=== PATIENT | male | born 1945 | race Caucasian/White ===

== ENCOUNTER 2018-08-13 13:24 | Emergency (ER) | payer OTHER, BC ==
[2018-08-13 13:37] VITALS: BP 160/90; PULSE 92; TEMP 98.4; BMI 27.8
[2018-08-13] MEDS ORDERED: VANCOMYCIN 1 GRAM (PRE-DOCKED) 1,000 MG/250 ML BAG IVPB ONE ×2 (14:47→14:53)
[2018-08-13] MEDS ORDERED: SODIUM CHLORIDE 0.9% 1000 ML INFUS.BAG IV ONE (14:47)
[2018-08-13] MEDS ORDERED: PIPERACILLIN/TAZOB 3.375 GM 3.375 GM in DEXTROSE 5%-WATER - 50 ML IVPB ONE (14:48)
[2018-08-13] MEDS ORDERED: PIPERACILLIN/TAZOB 3.375 GM 3.375 GM/50 ML BAG IVPB ONE (14:54)
--- NOTE | 2018-08-13 15:04 | PDOC ---
History of Present Illness - General Chief Complaint: Wound Stated Complaint: RASH Time Seen by Provider: 08/13/18 14:03 History Source: Patient Exam Limitations: No Limitations - History of Present Illness Initial Comments: 08/13/18 14:58 73 yo male DM here with c/o left testicular / groin pain. has noted a rash, left groin and was concerned he was getting an abscess. no f/c pain moderate. no dysuria. no mod factors. no h/o prior infections. . no n/f no abd pain. Past History - Past Medical History Allergies/Adverse Reactions: Allergies Allergy/AdvReac Type Severity Reaction Status Date / Time No Known Allergies Allergy Verified 08/13/18 13:34 Home Medications: Ambulatory Orders Insulin NPH Hum/Reg Insulin Hm [Humulin 70-30 Vial] 30 unit SQ BID 01/27/16 Amlodipine Besylate/Benazepril [Lotrel 10-20 mg Capsule] 1 cap PO DAILY Clindamycin [Cleocin -] 300 mg PO Q6H #28 capsule 08/13/18 COPD: No Diabetes: Yes - Suicide/Smoking/Psychosocial Hx Smoking History: Current every day smoker Number of Cigarettes Smoked Daily: 30 Information on smoking cessation initiated: No 'Breaking Loose' booklet given: 01/27/16 Hx Alcohol Use: Yes (SOCIAL) Drug/Substance Use Hx: No Substance Use Type: None Review of Systems - Review of Systems Constitutional: No: Chills, Diaphoresis, Fever HEENTM: No: Blurred Vision, Mouth Swelling Respiratory: No: Shortness of Breath, Wheezing Cardiac (ROS): No: Chest Pain : Yes: Testicular Pain Musculoskeletal: No: Back Pain Integumentary: Yes: Erythema, Rash Neurological: No: Headache, Numbness Psychiatric: No: Frequent Crying Endocrine: No: Excessive Sweating Hematologic/Lymphatic: No: Anemia, Blood Clots All Other Systems: Reviewed and Negative *Physical Exam - Vital Signs Last Vital Signs Temp Pulse Resp BP Pulse Ox 98.4 F 92 H 18 160/90 96 08/13/18 13:36 08/13/18 13:36 08/13/18 13:36 08/13/18 13:36 08/13/18 13:36 - Physical Exam Comments: 08/13/18 15:02 awake alert NAD lungs clear bilaterally heart rrr no mrg abd soft nt nd. left inguinal region with swelling indurated area palp abscess. bilat scrotal erythema, moist skin, no crepitus. tracking erythema to posterior testicule. multiple smal pustules across scrotom. expressable purulence from left inguinal region abscess. ED Treatment Course - LABORATORY CBC & Chemistry Diagram: 08/13/18 15:26 08/13/18 15:26 Medical Decision Making - Medical Decision Making 08/13/18 15:04 73 yo male h/o DM here with left inguinal abscess, scrotal cellulitis, folluculitis. concerns for early fourniers gangrene. plan r/o sepsis cbc lytes lact ivf, cultures lactic acid. iv abx. pt state he can not stay for admission . explained risk of severe infection including , needing orchiectomy and severe illness, given dose of vancomycin and zosyn. will cosult urology, and case management to help problem solve. 08/13/18 16:59 pt evaluated by case management unwilling to give further info regarding home obligations. will dc with rx for clindamycin 300 qid, told to follow up with urology, encouraged to return to ed for evaluation and admission . *DC/Admit/Observation/Transfer Diagnosis at time of Disposition: Scrotal abscess, Cellulitis - Discharge Dispostion Disposition: AGAINST MEDICAL ADVICE Condition at time of disposition: Guarded - Prescriptions Prescriptions: Clindamycin [Cleocin -] 300 mg PO Q6H #28 capsule - Referrals Referrals: Damien Zaragoza MD., MD [Staff Physician] - - Patient Instructions Printed Discharge Instructions: DI for Skin Abscess, DI for Sepsis -- Adult Additional Instructions: understand you are leaving against medical advice. you are at risk for serious infection at consequences such as losing your testicles, severe infection and even . you are encouraged to return for admission . you should take clindamycin 300 mg four times daily for one week. you should follow up with a urologist call dr. Zaragoza. you should soak in warm soapy water twice daily. - Post Discharge Activity
[2018-08-13 15:58] LABS: BASO % 0.7 % (0-2.0); EOS % 1.7 % (0-4.5); HEMATOCRIT 47.8 % (35.4-49); HEMOGLOBIN 16.1 GM/dL (11.7-16.9); MCHC 33.7 g/dl (32.0-35.9); MEAN CELL VOLUME 88.9 fl (80-96); MEAN PLT VOLUME 10.1 fl (7.5-11.1); MONO % 10.2 % (3.8-10.2); NEUT % 71.4 % (42.8-82.8); PLATELET COUNT 232 K/MM3 (134-434); RBC 5.38 M/mm3 (4.00-5.60); RDW 14.7 % (11.9-15.9); WHITE BLOOD COUNT 11.3 K/mm3 (4.0-10.0)
[2018-08-13 16:02] LABS: URINE APPEARANCE CLOUDY; URINE BILIRUBIN NEGATIVE (<2.0 mg/dL); URINE COLOR AMBER; URINE GLUCOSE (UA) 3+ (NEGATIVE); URINE KETONE NEGATIVE (NEGATIVE); URINE LEUK ESTERASE NEGATIVE (NEGATIVE); URINE NITRITE NEGATIVE (NEGATIVE); URINE PROTEIN 2+ (NEGATIVE)
[2018-08-13 16:29] LABS: ALBUMIN 3.9 g/dl (3.4-5.0); ALK PHOS 91 U/L (45-117); ANION GAP 9 MMOL/L (8-16); BILIRUBIN,TOTAL 0.6 mg/dL (0.2-1); BLOOD UREA NITROGEN 14 mg/dL (7-18); CALCIUM 10.2 mg/dL (8.5-10.1); CHLORIDE 104 mmol/L (98-107); CO2 29 mmol/L (21-32); GLUCOSE,RANDOM 254 mg/dL (74-106); POTASSIUM 3.3 mmol/L (3.5-5.1); SGOT/AST 11 U/L (15-37); SGPT/ALT 21 U/L (13-61); SODIUM 142 mmol/L (136-145); TOT PROT 7.2 g/dl (6.4-8.2)
[2018-08-13 16:50] LABS: URINE MUCUS RARE
== END 2018-08-13 17:21 | disposition left against medical advice (07) ==
LOC: JER 13:24
DX: N49.2 Inflammatory disorders of scrotum (principal); E11.9 Type 2 diabetes mellitus without complications; Z79.4 Long term (current) use of insulin; F17.210 Nicotine dependence, cigarettes, uncomplicated
CPT/HCPCS: 36415; 80053; 81003; 81015; 83605; 85025; 87040; 87086; 96365; 96375; 99283-25; J7030

== ENCOUNTER 2019-06-07 13:33 | Emergency (ER) | payer OTHER, BC ==
[2019-06-07 13:49] VITALS: BP 111/68; PULSE 88; TEMP 98.2; BMI 28.0
[2019-06-07] MEDS ORDERED: SULFAMETHOXAZOLE/TRIMETHOPRIM 800MG/160MG D.S. TABLET PO ONE (14:19)
[2019-06-07] MEDS ORDERED: CEPHALEXIN MONOHYDRATE 500 MG CAPSULE (UD) PO ONE (14:19)
--- NOTE | 2019-06-07 14:19 | PDOC ---
History of Present Illness - General Chief Complaint: Wound Stated Complaint: ARM PAIN Time Seen by Provider: 06/07/19 13:53 History Source: Patient Exam Limitations: No Limitations - History of Present Illness Initial Comments: 06/07/19 14:13 74 yo M w/ a h/o DM, COPD comes in c/o 3 days of L elbow pain and redness. He thinks he got it from leaning too much on it. No other complaints today, no fever/chills, no NVD, no CP, no SOB, no difficulty moving L elbow. Pt's FS was 151 this am. He says that he does not have a PMD, he has a diabetes doctor. Past History - Past Medical History Allergies/Adverse Reactions: Allergies Allergy/AdvReac Type Severity Reaction Status Date / Time No Known Allergies Allergy Verified 08/13/18 13:34 Home Medications: Ambulatory Orders Insulin NPH Hum/Reg Insulin Hm [Humulin 70-30 Vial] 30 unit SQ BID 01/27/16 Amlodipine Besylate/Benazepril [Lotrel 10-20 mg Capsule] 1 cap PO DAILY Clindamycin [Cleocin -] 300 mg PO Q6H #28 capsule 08/13/18 Cephalexin [Keflex] 500 mg PO Q6H 10 Days #40 capsule 06/07/19 Sulfamethoxazole/Trimethoprim [Bactrim Ds -] 1 tab PO BID 10 Days #20 tablet 03/20 COPD: No Diabetes: Yes - Suicide/Smoking/Psychosocial Hx Smoking History: Former smoker Have you smoked in the past 12 months: No Number of Cigarettes Smoked Daily: 30 Information on smoking cessation initiated: No 'Breaking Loose' booklet given: 01/27/16 Hx Alcohol Use: No Drug/Substance Use Hx: No Substance Use Type: None Review of Systems - Review of Systems Able to Perform ROS?: Yes Constitutional: No: Chills, Fever, Malaise, Night Sweats HEENTM: No: Eye Pain, Recent change in vision, Throat Pain Respiratory: No: Cough, Shortness of Breath Cardiac (ROS): No: Chest Pain, Palpitations, Chest Tightness ABD/GI: No: Diarrhea, Nausea, Vomiting, Abdominal cramping : No: Dysuria, Hematuria Musculoskeletal: No: Back Pain Integumentary: No: Rash Neurological: No: Headache, Numbness, Dizziness Psychiatric: No: Change in Appetite Endocrine: No: Unexplained Weight Loss *Physical Exam - Vital Signs Last Vital Signs Temp Pulse Resp BP Pulse Ox 98.2 F 88 16 111/68 100 06/07/19 13:48 06/07/19 13:48 06/07/19 13:48 06/07/19 13:48 06/07/19 13:48 - Physical Exam General Appearance: Yes: Nourished. No: Apparent Distress HEENT: positive: JAMES, Normal Voice. negative: Pale Conjunctivae, Scleral Icterus (R), Scleral Icterus (L) Neck: positive: Supple. negative: Decreased range of motion, Tender midline Respiratory/Chest: positive: Lungs Clear, Normal Breath Sounds. negative: Respiratory Distress, Accessory Muscle Use Cardiovascular: positive: Regular Rhythm, Regular Rate Musculoskeletal: positive: Normal Inspection. negative: Decreased Range of Motion Extremity: positive: Normal Capillary Refill, Normal Range of Motion, Other (L elbow with mild erythema and warmth with a central area of 1cm induration, no streaking, no fluctuance, no head, no bursitis. FROM elbow with 5/5 strength. No distal/proximal swelling. FROM and 5/5 strength L wrist and shoulder.). negative: Pedal Edema Integumentary: positive: Normal Color, Dry. negative: Jaundice, Rash Neurologic: positive: Fully Oriented, Alert, Normal Mood/Affect Medical Decision Making - Medical Decision Making 06/07/19 14:16 74 yo M w/ elbow cellulitis. No fluctuance, no signs of septic joint, pt w/ FROM elbow. No trauma, no indication for xrays. Will discharge with bactrim, keflex, probiotics, warm soaks and follow up with PMD which I will recommend. Return to ER for worsening/concerning symptoms. Pt is non toxic appearing in NAD , AVSS, no fever/chills 06/07/19 14:22 *DC/Admit/Observation/Transfer Diagnosis at time of Disposition: Cellulitis of left elbow - Discharge Dispostion Disposition: HOME Condition at time of disposition: Stable - Prescriptions Prescriptions: Cephalexin [Keflex] 500 mg PO Q6H 10 Days #40 capsule Sulfamethoxazole/Trimethoprim [Bactrim Ds -] 1 tab PO BID 10 Days #20 tablet - Referrals Referrals: Aramis Holm MD [Staff Physician] - - Patient Instructions Printed Discharge Instructions: DI for Cellulitis -- Adult Additional Instructions: Please do warm soaks for 15 minutes every 2-3 hours. Return to the ER for worsening/concerning symptoms. Follow up with PCP in 2-[address] Holm to make an appointment. Please take probiotics with the antibiotics. - Post Discharge Activity
[2019-06-07] MEDS ORDERED: SULFAMETHOXAZOLE/TRIMETHOPRIM 800MG/160MG D.S. TABLET ONE (14:34)
[2019-06-07] MEDS ORDERED: CEPHALEXIN MONOHYDRATE 500 MG CAPSULE (UD) ONE (14:35)
== END 2019-06-07 14:30 | disposition home or self-care (01) ==
LOC: JERFT 13:33
DX: L03.114 Cellulitis of left upper limb (principal); E11.9 Type 2 diabetes mellitus without complications; Z79.4 Long term (current) use of insulin; J44.9 Chronic obstructive pulmonary disease, unspecified; Z87.891 Personal history of nicotine dependence
CPT/HCPCS: 82962; 99281-25

== ENCOUNTER 2022-09-09 04:17 | Day surgery (SDC) | payer OTHER, BC ==
[2022-09-07 17:52] VITALS: BMI 29.6
[2022-09-09] MEDS ORDERED: oxyCODONE HCL 5 MG TABLET PO PRN ×3 (07:57→09:45)
[2022-09-09] MEDS ORDERED: PROMETHAZINE HCL 25 MG/1 ML VIAL IVPUSH PRN (07:57)
[2022-09-09] MEDS ORDERED: ONDANSETRON 4 MG/2 ML VIAL IVPUSH PRN (07:57)
[2022-09-09] MEDS ORDERED: FENTANYL CITRATE/PF 50 MCG/ML VIAL IVPUSH PRN (07:57)
[2022-09-09] MEDS ORDERED: ACETAMINOPHEN 1000 MG/100 ML BAG IVPB PRN (07:57)
[2022-09-09] MEDS ORDERED: LACTATED RINGERS SOLUTION 1,000 ML IV SCH (08:00)
[2022-09-09] MEDS ORDERED: LIDOCAINE HCL/PF 2% SDV 5ML VIAL ONE (08:57)
[2022-09-09] MEDS ORDERED: PHENYLEPHRINE HCL 10 MG/1 ML SINGLE DOSE VIAL ONE (08:57)
[2022-09-09] MEDS ORDERED: FENTANYL CITRATE/PF 50 MCG/ML VIAL ONE (08:57)
[2022-09-09] MEDS ORDERED: DEXAMETHASONE SOD PHOSPHATE 4 MG/1 ML VIAL ONE (08:57)
[2022-09-09] MEDS ORDERED: ONDANSETRON 4 MG/2 ML VIAL ONE ×2 (08:57→10:42)
[2022-09-09] MEDS ORDERED: ROCURONIUM BROMIDE 50 MG/5 ML SYRINGE ONE (08:57)
[2022-09-09] MEDS ORDERED: PROPOFOL 20 ML ONE (08:57)
[2022-09-09] MEDS ORDERED: AMPICILLIN NA/SULBACTAM NA 3 GM in SODIUM CHLORIDE 100 ML IVPB ONE (09:00)
[2022-09-09] MEDS ORDERED: AMPICILLIN NA/SULBACTAM NA 3 GM/100 ML PRE-DOCKED IVPB ONE (09:12)
[2022-09-09] MEDS ORDERED: NEOSTIGMINE METHYLSULFATE 0.5 MG/1 ML - 10 ML MDV ONE (09:18)
[2022-09-09] MEDS ORDERED: GLYCOPYRROLATE 0.2 MG/1 ML VIAL ONE ×2 (09:18→09:44)
[2022-09-09] MEDS ORDERED: FUROSEMIDE 40 MG/4 ML INJECTABLE VIAL ONE (09:41)
[2022-09-09] MEDS ORDERED: SUGAMMADEX SODIUM 200 MG/2 ML VIAL ONE (09:44)
[2022-09-09] MEDS ORDERED: ELECTROLYTE-148 SOLN 1,000 ML IV SCH (09:45)
[2022-09-09] MEDS ORDERED: hydrALAZINE HCL 20 MG/ML VIAL ONE (09:56)
[2022-09-09] MEDS ORDERED: ONDANSETRON 4 MG/2 ML VIAL IVPUSH ONE (10:45)
[2022-09-09 11:32] VITALS: RESP 18; TEMP 97.5
[2022-09-09 12:11] VITALS: BP 142/71; PULSE 77
== END 2022-09-09 12:30 | disposition home or self-care (01) ==
LOC: JASU-SURG 04:17
PROVIDERS: ATTEND Urology
PROC: 0T5B8ZZ Destruction of Bladder, Via Natural or Artificial Opening Endoscopic (ICD-10-PCS; principal; 2022-09-09 08:30)
DX: C67.8 Malignant neoplasm of overlapping sites of bladder (principal)
CPT/HCPCS: 82962; 88307-TC; 93971; 94760

== ENCOUNTER 2023-02-23 14:50 | Emergency (ER) | payer OTHER, BC ==
[2023-02-23 15:12] VITALS: BP 116/65; PULSE 65; RESP 16; TEMP 98.1; BMI 29.0
[2023-02-23] MEDS ORDERED: DIPHTH,PERTUSS(ACELL),TET 0.5 ML DISP.SYRIN IM ONE ×2 (15:36→15:54)
[2023-02-23] MEDS ORDERED: ACETAMINOPHEN 325 MG TABLET (FP) PO ONE (15:36)
[2023-02-23] MEDS ORDERED: ACETAMINOPHEN 325 MG TABLET (FP) ONE (15:54)
[2023-02-23] MEDS ORDERED: ceFAZolin 2 GRAM PREMIX BAG IVPB ONE (17:12)
[2023-02-23] MEDS ORDERED: CEFAZOLIN SODIUM 2 GM in DEXTROSE 5%-WATER 100 ML IVPB ONE (17:15)
[2023-02-23] MEDS ORDERED: ceFAZolin SODIUM 1 GM VIAL ONE (17:36)
== END 2023-02-23 18:35 | disposition home or self-care (01) ==
LOC: JER 14:50
PROC: 0HQ1XZZ Repair Face Skin, External Approach (ICD-10-PCS; principal; 2023-02-23)
PROC: 3E03329 Introduction of Other Anti-infective into Peripheral Vein, Percutaneous Approach (ICD-10-PCS; 2023-02-23)
PROC: 3E0234Z Introduction of Serum, Toxoid and Vaccine into Muscle, Percutaneous Approach (ICD-10-PCS; 2023-02-23)
DX: S02.2XXB Fracture of nasal bones, initial encounter for open fracture (principal); S60.417A Abrasion of left little finger, initial encounter; W10.1XXA Fall (on)(from) sidewalk curb, initial encounter; Y93.01 Activity, walking, marching and hiking; Y92.480 Sidewalk as the place of occurrence of the external cause
CPT/HCPCS: 12011-25; 70450-TC; 70486-TC; 72125-TC; 73110-TC-LT-FY; 73130-TC-LT-FY; 82962; 90471; 90715; 93005; 93010; 96365; 99284-25

== ENCOUNTER 2024-07-02 12:31 | Inpatient (IN) | payer OTHER, BC ==
[2024-07-02 12:35] VITALS: BMI 29.0
[2024-07-02] MEDS: ALBUTEROL SO4 2.5/IPRATROPIUM 0.5 INH SOL 3 ML VIAL.NEB. NEB SCH (13:15)
[2024-07-02] MEDS ORDERED: ALBUTEROL SO4 2.5/IPRATROPIUM 0.5 INH SOL 3 ML VIAL.NEB. NEB ONE (13:22)
[2024-07-02] MEDS ORDERED: methylPREDNISolone NA SUCC 125 MG/2 ML VIAL ONE (13:22)
[2024-07-02] MEDS: methylPREDNISolone NA SUCC 125 MG/2 ML VIAL IVPUSH ONE (13:46)
[2024-07-02 13:55] LABS: BASO % 1.3 % (0-2.0); EOS % 1.8 % (0-4.5); HEMATOCRIT 20.8 % (35.4-49); LYMPH % 13.1 % (8-40); MCHC 27.6 g/dl (32.0-35.9); MEAN CELL VOLUME 55.7 fl (80-96); MONO % 11.6 % (3.8-10.2); NEUT % 72.2 % (42.8-82.8); PLATELET COUNT 208 10^3/uL (134-434); RBC 3.73 M/mm3 (4.00-5.60); RDW 21.5 % (11.9-15.9)
[2024-07-02 13:56] LABS: VENOUS BASE EXCESS -2.6 mmol/L (-2-2); VENOUS O2 SATURATION 37.1 % (70-80); VENOUS PCO2 38.2 mmHg (38-52); VENOUS PH 7.382 (7.310-7.410)
[2024-07-02 14:00] LABS: MCH 15.4 pg (25.7-33.7)
[2024-07-02 14:02] LABS: INR 1.14 (0.83-1.09); PROTHROMBIN TIME (PATIENT) 12.8 SEC (9.7-13.0)
[2024-07-02 14:04] LABS: ACTIVATED PTT 28.1 SECONDS (25.2-36.5); HEMOGLOBIN 5.7 GM/dL (11.7-16.9)
[2024-07-02 14:13] LABS: POTASSIUM 4.1 mmol/L (3.5-5.1)
[2024-07-02 14:15] LABS: ALBUMIN 3.3 g/dl (3.4-5.0); BLOOD UREA NITROGEN 19.5 mg/dL (7-18); CALCIUM 9.1 mg/dL (8.5-10.1)
[2024-07-02 14:18] LABS: CREATININE 1.5 mg/dL (0.55-1.3)
[2024-07-02 14:20] LABS: BILIRUBIN,TOTAL 0.5 mg/dL (0.2-1); TOT PROT 6.4 g/dl (6.4-8.2)
[2024-07-02 14:58] LABS: RETICULOCYTES 2.43 % (0.5-1.5)
[2024-07-02] MEDS ORDERED: CEFTRIAXONE 1 GM/50 ML BAG ONE (15:51)
[2024-07-02 16:03] LABS: BILIRUBIN,DIRECT 0.2 mg/dL (0.0-0.2)
[2024-07-02] MEDS ORDERED: AZITHROMYCIN IVPB 500 MG/250 ML BAG IVPB ONE (16:31)
[2024-07-02] MEDS: AZITHROMYCIN IVPB 500 MG in DEXTROSE 5%-WATER - 250 ML IVPB ONE (16:56)
[2024-07-02] MEDS: FUROSEMIDE 40 MG/4 ML INJECTABLE VIAL IVPUSH SCH (19:01)
[2024-07-02] MEDS ORDERED: ALBUTEROL SO4 2.5/IPRATROPIUM 0.5 INH SOL 3 ML VIAL.NEB. NEB PRN (20:44)
[2024-07-02] MEDS: INSULIN ASPART SLIDING SCALE (NOVOLOG) 1 VIAL SQ SCH (21:05)
[2024-07-02] MEDS: INSULIN (LEVEMIR) 100 UNITS/ML UNITS SQ ONE (21:06)
[2024-07-02] MEDS: INSULIN (NOVOLOG MIX 70/30) 100 UNITS/ML MDV SQ SCH (21:07)
[2024-07-02] MEDS: amLODIPine BESYLATE 10 MG TABLET (FP) PO SCH (22:28)
[2024-07-03 00:06] LABS: GLUCOSE,RANDOM 401 mg/dL (74-106)
[2024-07-03 00:46] LABS: HEMATOCRIT 22.9 % (35.4-49); MCHC 27.6 g/dl (32.0-35.9); MEAN CELL VOLUME 55.9 fl (80-96); MEAN PLT VOLUME 8.5 fl (7.5-11.1); PLATELET COUNT 201 10^3/uL (134-434); RDW 21.6 % (11.9-15.9); WHITE BLOOD COUNT 6.3 K/mm3 (4.0-10.0)
[2024-07-03 00:50] LABS: HEMOGLOBIN 6.3 GM/dL (11.7-16.9); MCH 15.4 pg (25.7-33.7)
[2024-07-03] MEDS: INSULIN (NOVOLOG) ASPART 100 UNITS/ML 10ML VIAL SQ ONE (01:25)
[2024-07-03 08:21] LABS: POTASSIUM 3.9 mmol/L (3.5-5.1)
[2024-07-03 08:26] LABS: BLOOD UREA NITROGEN 28.2 mg/dL (7-18)
[2024-07-03 08:29] LABS: CALCIUM 9.4 mg/dL (8.5-10.1); CREATININE 1.4 mg/dL (0.55-1.3)
[2024-07-03 08:30] LABS: ALBUMIN 3.4 g/dl (3.4-5.0); BILIRUBIN,TOTAL 0.7 mg/dL (0.2-1); TOT PROT 6.5 g/dl (6.4-8.2)
[2024-07-03] MEDS ORDERED: FLU VACCINE (FLULAVAL) PF 45 MCG/0.5 ML SYRINGE 2024-2025 IM ONE (09:00)
[2024-07-03 10:06] LABS: HEMATOCRIT 22.3 % (35.4-49); MCHC 29.7 g/dl (32.0-35.9); MEAN CELL VOLUME 57.2 fl (80-96); PLATELET COUNT 195 10^3/uL (134-434); RDW 24.4 % (11.9-15.9); WHITE BLOOD COUNT 8.8 K/mm3 (4.0-10.0)
[2024-07-03 10:19] LABS: HEMOGLOBIN 6.6 GM/dL (11.7-16.9)
[2024-07-03] MEDS: NICOTINE 14 MG/24 HOURS TOPICAL PATCH TD SCH (11:40)
[2024-07-03 16:09] LABS: URINE APPEARANCE CLEAR; URINE BILIRUBIN NEGATIVE (NEGATIVE); URINE COLOR YELLOW; URINE GLUCOSE (UA) 1+ (NEGATIVE); URINE KETONE NEGATIVE (NEGATIVE); URINE LEUK ESTERASE NEGATIVE (NEGATIVE); URINE NITRITE NEGATIVE (NEGATIVE); URINE PROTEIN NEGATIVE (NEGATIVE); URINE UROBILINOGEN 0.2 mg/dL (0.2-1.0)
[2024-07-04] MEDS: methylPREDNISolone NA SUCC 40 MG/1 ML VIAL IVPUSH SCH (02:17)
[2024-07-04 04:54] LABS: EOS % 0.1 % (0-4.5); HEMATOCRIT 27.2 % (35.4-49); MEAN CELL VOLUME 59.9 fl (80-96); MEAN PLT VOLUME 8.9 fl (7.5-11.1); WHITE BLOOD COUNT 14.3 K/mm3 (4.0-10.0)
[2024-07-04 04:58] LABS: BASO % 0.1 % (0-2.0); HEMOGLOBIN 8.1 GM/dL (11.7-16.9); LYMPH % 7.4 % (8-40); MCHC 29.7 g/dl (32.0-35.9); NEUT % 86.4 % (42.8-82.8); PLATELET COUNT 188 10^3/uL (134-434); RBC 4.53 M/mm3 (4.00-5.60); RDW 28.1 % (11.9-15.9)
[2024-07-04 05:09] LABS: MCH 17.8 pg (25.7-33.7)
[2024-07-04 06:53] LABS: HEMATOCRIT 26.6 % (35.4-49); HEMOGLOBIN 7.8 GM/dL (11.7-16.9); MCHC 29.4 g/dl (32.0-35.9); MEAN PLT VOLUME 8.5 fl (7.5-11.1); PLATELET COUNT 200 10^3/uL (134-434); RBC 4.37 M/mm3 (4.00-5.60); RDW 27.8 % (11.9-15.9); WHITE BLOOD COUNT 15.2 K/mm3 (4.0-10.0)
[2024-07-04 07:12] LABS: MCH 17.9 pg (25.7-33.7)
[2024-07-04 07:22] LABS: CALCIUM 9.1 mg/dL (8.5-10.1)
[2024-07-04 07:23] LABS: ALBUMIN 3.5 g/dl (3.4-5.0); BLOOD UREA NITROGEN 38.8 mg/dL (7-18); MAGNESIUM 2.8 mg/dL (1.8-2.4)
[2024-07-04 07:25] LABS: PHOSPHOROUS 3.4 mg/dL (2.5-4.9)
[2024-07-04 07:26] LABS: BILIRUBIN,TOTAL 1.1 mg/dL (0.2-1); CREATININE 1.4 mg/dL (0.55-1.3); TOT PROT 6.5 g/dl (6.4-8.2)
[2024-07-04 09:10] LABS: ANISOCYTOSIS 0; MACROCYTOSIS 0
[2024-07-04] MEDS: ALBUTEROL SO4 HFA INHALER IH PRN (09:48)
[2024-07-04 15:04] VITALS: BP 149/64; PULSE 90; RESP 19; TEMP 96.9
[2024-07-04 15:48] LABS: RETICULOCYTES 2.59 % (0.5-1.5)
[2024-07-04] MEDS ORDERED: metoPROLOL SUCCINATE 25 MG TAB.SR.24H (FP) PO SCH (16:30)
== END 2024-07-04 17:36 | disposition home or self-care (01) | DRG 811 ==
LOC: JER 12:31 → JERBED 15:37 → J6S 17:38 → J4W 18:31
PROVIDERS: ADMIT Internal Medicine; ATTEND Internal Medicine
PROC: 30233N1 Transfusion of Nonautologous Red Blood Cells into Peripheral Vein, Percutaneous Approach (ICD-10-PCS; principal; 2024-07-03)
DX: D62 Acute posthemorrhagic anemia (principal); I50.33 Acute on chronic diastolic (congestive) heart failure; I13.0 Hypertensive heart and chronic kidney disease with heart failure and stage 1 through stage 4 chronic kidney disease, or unspecified chronic kidney disease; J44.1 Chronic obstructive pulmonary disease with (acute) exacerbation; I47.29 Other ventricular tachycardia; E11.9 Type 2 diabetes mellitus without complications; E78.5 Hyperlipidemia, unspecified; F17.200 Nicotine dependence, unspecified, uncomplicated; Z85.51 Personal history of malignant neoplasm of bladder; R91.8 Other nonspecific abnormal finding of lung field; N18.9 Chronic kidney disease, unspecified
CPT/HCPCS: 0241U-QW; 36415; 36430; 71045-TC-FY; 80053; 81003; 82248; 82272; 82607; 82728; 82803; 82947; 82962; 83010; 83036; 83540; 83550; 83615; 83735; 83880; 84100; 84466; 84484; 85025; 85027; 85045; 85610; 85730; 86850; 86900; 86901; 86922; 93005; 93010; 93306-TC; 93971-TC; 94761; 99285-25; P9038; P9058